=== PATIENT | male | born 1985 | race Caucasian/White ===

== ENCOUNTER 2017-09-24 18:18 | Emergency (ER) | payer MEDICAID, OTHER ==
[~2017-09-24] VITALS: Ht 182.9 cm; Wt 83.0 kg
[~2017-09-24 18:18] MED LIST: VITAMINS; vitamins
[2017-09-24 18:45] VITALS: BP 137/91
== END 2017-09-24 23:56 | disposition left against medical advice (07) ==
LOC: ER 18:18
DX: J02.9 Acute pharyngitis, unspecified (principal); R11.10 Vomiting, unspecified; R53.81 Other malaise
CPT/HCPCS: 99281